=== PATIENT | male | born 1970 | race Caucasian/White ===

== ENCOUNTER 2023-05-10 13:56 | Emergency (ER) | payer OTHER, SELFPAY ==
[2023-05-10] MEDS ORDERED: Aspirin Chewable 81 MG TAB ONE (14:15)
[2023-05-10 14:21] LABS: #Eosinphils 0.1 thou/uL (0.0-0.7); #Lymphocytes 1.6 thou/uL (1.20-3.40); #Monocytes 0.3 thou/uL (0.11-0.59); #Neutrophils 4.5 thou/uL (1.40-6.50); %Basophils 0.6 % (0.0-1.0); %Eosinophils 1.5 % (0.0-10.0); %Lymphocytes 24.2 % (21.0-51.0); %Monocytes 5.2 % (0.0-10.0); %Neutrophils 68.5 % (42.0-75.0); Hematocrit 42.9 % (42.0-52.0); Hemoglobin 14.3 g/dL (14.0-18.0); Mean Corpuscular HGB CONC 33.3 g/dL (32.0-36.0); Mean Corpuscular Hemoglobin 29.1 pg (27.0-31.0); Mean Corpuscular Volume 87.4 fl (78.0-98.0); Mean Platelet Volume 8.6 fL (7.4-10.4); Platelet Count 244 10x3/uL (130-400); RBC Distribution Width 12.1 % (11.5-14.5); Red Blood Cell (RBC) Count 4.91 mill/uL (4.70-6.10); White Blood Cell (WBC) Count 6.5 10x3/uL (4.8-10.8)
[2023-05-10 14:31] LABS: ALT (SGPT) 29 U/L (8-55); AST (SGOT) 17 U/L (5-34); Albumin 4.1 g/dL (3.5-5.0); Alkaline Phosphatase 87 U/L (40-110); Anion Gap 16 mmol/L (10-20); BUN (Urea Nitrogen) 13 mg/dL (8.4-25.7); Bilirubin, Total 0.4 mg/dL (0.2-1.2); Calc. Creatinine Clearance 0 mL/min (70-130); Calcium 9.3 mg/dL (7.8-10.44); Carbon Dioxide 25 mmol/L (22-29); Chloride 106 mmol/L (98-107); Estimated GFR 72; Globulin 2.9 g/dL (2.4-3.5); Glucose 116 mg/dL (70-105); Potassium 3.8 mmol/L (3.5-5.1); Sodium 143 mmol/L (136-145)
[2023-05-10 14:34] LABS: Troponin I Less than 0.010 ng/mL (< 0.028)
[2023-05-10] MEDS ORDERED: Enoxaparin 120 MG/0.8 ML SYRINGE SC ONE (15:33)
[2023-05-10 17:33] LABS: Troponin I Less than 0.010 ng/mL (< 0.028)
== END 2023-05-10 17:49 | disposition short-term general hospital (02) ==
LOC: NAV ERS 13:56
DX: I20.0 Unstable angina (principal); R07.2 Precordial pain
CPT/HCPCS: 36415; 71045; 80053; 83880; 84484; 85025; 85379; 93005; 96372; J1650

== ENCOUNTER 2023-12-05 16:14 | Emergency (ER) | payer OTHER ==
[2023-12-05] MEDS ORDERED: Dexamethasone 4 mg/ml Vial ONE (16:28)
[2023-12-05] MEDS ORDERED: Ketorolac Tromethamine 60 MG/2 ML VIAL ONE (16:28)
== END 2023-12-05 17:46 | disposition home or self-care (01) ==
LOC: NAV ERS 16:14
DX: M54.2 Cervicalgia (principal)
CPT/HCPCS: 72125; 96372; J1100; J1885